=== PATIENT | male | born 1970 | race Two or more races ===

== ENCOUNTER 2021-05-08 07:19 | Emergency (ER) | payer OTHER ==
[~2021-05-08] VITALS: Ht 180.3 cm; Wt 91.6 kg
[2021-05-08 08:07] VITALS: BP 137/79
== END 2021-05-08 09:10 | disposition home or self-care (01) ==
LOC: ER 07:19
DX: I10 Essential (primary) hypertension (principal); F41.9 Anxiety disorder, unspecified; Z88.8 Allergy status to other drugs, medicaments and biological substances
CPT/HCPCS: 93005

== ENCOUNTER 2022-04-24 16:58 | Emergency (ER) | payer OTHER ==
[~2022-04-24] VITALS: Ht 180.3 cm; Wt 92.0 kg
[2022-04-24 17:12] VITALS: BP 182/95
[2022-04-24 18:25] LABS: BUN/Creatinine Ratio 15.7; Calcium 8.7 mg/dL (8.5-10.1); Potassium 5.1 mmol/L (3.5-5.1)
[2022-04-24 18:27] LABS: Basophils # (auto) 0.1 10 ^3/uL (0-0.2); Basophils % (auto) 0.6 % (0.0-2.0); Eosinophils # (auto) 0.4 10 ^3/uL (0-0.8); Eosinophils % (auto) 3.8 % (0.0-7.0); Hematocrit 48.4 % (41.0-53.0); Lymphocytes # (auto) 2.5 10 ^3/uL (0.4-5.4); Lymphocytes % (auto) 23.7 % (10.0-50.0); Mean Corpuscular Hemoglobin 29.1 pg (28.0-32.0); Mean Corpuscular Hgb Conc. 33.1 g/dL (32.0-36.0); Monocytes # (auto) 0.8 10 ^3/uL (0-1.3); Monocytes % (auto) 7.8 % (0.0-12.0); Neutrophils # (auto) 6.8 10 ^3/uL (1.6-8.6); Neutrophils % (auto) 64.1 % (37.0-80.0); Nucleated Red Blood Cells % 0.1 %; Red Cell Distribution Width 15.4 % (11.8-14.3); White Blood Cell 10.6 10^3/uL (4.4-10.8)
[2022-04-24 18:28] LABS: Bilirubin, Total 0.2 mg/dL (0.2-1.0)
== END 2022-04-25 00:06 | disposition home or self-care (01) ==
LOC: ER 17:07
DX: R07.89 Other chest pain (principal); I10 Essential (primary) hypertension; Z88.8 Allergy status to other drugs, medicaments and biological substances
CPT/HCPCS: 36415; 71045; 80053; 83880; 84484; 85025; 85379; 93005

== ENCOUNTER 2022-05-11 02:53 | Emergency (ER) | payer OTHER ==
[~2022-05-11] VITALS: Ht 177.8 cm; Wt 88.0 kg
[2022-05-11 03:52] LABS: Basophils # (auto) 0 10 ^3/uL (0-0.2); Basophils % (auto) 0.8 % (0.0-2.0); Eosinophils # (auto) 0.4 10 ^3/uL (0-0.8); Eosinophils % (auto) 9.1 % (0.0-7.0); Hematocrit 46.6 % (41.0-53.0); Hemoglobin 15.1 g/dL (13.5-17.5); Lymphocytes # (auto) 1.5 10 ^3/uL (0.4-5.4); Mean Corpuscular Hemoglobin 28.8 pg (28.0-32.0); Mean Corpuscular Hgb Conc. 32.5 g/dL (32.0-36.0); Mean Corpuscular Volume 88.6 fL (80.0-100.0); Monocytes # (auto) 0.4 10 ^3/uL (0-1.3); Monocytes % (auto) 8.1 % (0.0-12.0); Neutrophils # (auto) 2.6 10 ^3/uL (1.6-8.6); Red Blood Cells 5.26 10^6/uL (4.5-5.90); Red Cell Distribution Width 15.5 % (11.8-14.3); White Blood Cell 4.9 10^3/uL (4.4-10.8)
[2022-05-11 04:01] LABS: Albumin 3.4 g/dL (3.4-5.0); BUN/Creatinine Ratio 23.2; Calcium 8.2 mg/dL (8.5-10.1); Potassium 4.2 mmol/L (3.5-5.1)
[2022-05-11 04:03] LABS: Bilirubin, Total 0.2 mg/dL (0.2-1.0); Total Protein 6.3 g/dL (6.4-8.2)
[2022-05-11] MEDS ORDERED: ASPirin 325 MG TAB PO ONE (08:15)
[2022-05-11 08:20] VITALS: BP 150/85
== END 2022-05-11 09:17 | disposition home or self-care (01) ==
LOC: ER 02:53
DX: R07.89 Other chest pain (principal); I16.0 Hypertensive urgency; F17.210 Nicotine dependence, cigarettes, uncomplicated; F12.10 Cannabis abuse, uncomplicated
CPT/HCPCS: 36415; 71045; 80053; 84484; 85025; 93005

== ENCOUNTER 2022-06-12 00:51 | Emergency (ER) | payer OTHER ==
[~2022-06-12] VITALS: Ht 177.8 cm; Wt 90.0 kg
[2022-06-12 01:18] LABS: Basophils # (auto) 0.1 10 ^3/uL (0-0.2); Basophils % (auto) 1.3 % (0.0-2.0); Eosinophils # (auto) 0.5 10 ^3/uL (0-0.8); Eosinophils % (auto) 4.8 % (0.0-7.0); Hematocrit 41.1 % (41.0-53.0); Hemoglobin 13.9 g/dL (13.5-17.5); Lymphocytes # (auto) 2.8 10 ^3/uL (0.4-5.4); Lymphocytes % (auto) 27.5 % (10.0-50.0); Mean Corpuscular Hemoglobin 29.2 pg (28.0-32.0); Mean Corpuscular Hgb Conc. 33.8 g/dL (32.0-36.0); Mean Corpuscular Volume 86.5 fL (80.0-100.0); Monocytes # (auto) 0.5 10 ^3/uL (0-1.3); Monocytes % (auto) 5.4 % (0.0-12.0); Neutrophils # (auto) 6.2 10 ^3/uL (1.6-8.6); Nucleated Red Blood Cells % 0.4 %; Red Blood Cells 4.75 10^6/uL (4.5-5.90); White Blood Cell 10.2 10^3/uL (4.4-10.8)
[2022-06-12 01:27] LABS: Albumin 3.6 g/dL (3.4-5.0); BUN/Creatinine Ratio 24.1; Calcium 8.2 mg/dL (8.5-10.1); Potassium 3.6 mmol/L (3.5-5.1)
[2022-06-12 01:30] LABS: Bilirubin, Total 0.3 mg/dL (0.2-1.0); Total Protein 6.4 g/dL (6.4-8.2)
[2022-06-12 01:51] LABS: Urine Bacteria FEW /hpf (None Seen); Urine Blood Negative /uL (Negative); Urine Mucus FEW (None Seen); Urine WBC <1 /hpf (0 - 3)
[2022-06-12 04:00] VITALS: BP 128/74
== END 2022-06-12 04:33 | disposition home or self-care (01) ==
LOC: ER 00:51
DX: R07.89 Other chest pain (principal); F17.210 Nicotine dependence, cigarettes, uncomplicated; F12.10 Cannabis abuse, uncomplicated; I10 Essential (primary) hypertension; Z88.6 Allergy status to analgesic agent
CPT/HCPCS: 36415; 71045; 80053; 81001; 84484; 85025; 85379; 93005

== ENCOUNTER → 2022-07-03 | Emergency (ER) | payer MEDICAID, OTHER ==
[~2022-07-03] VITALS: Ht 177.8 cm; Wt 88.4 kg
[2022-07-03 16:36] VITALS: BP 166/85
[2022-07-03 16:57] LABS: Basophils % (auto) 0.7 % (0.0-2.0); Eosinophils # (auto) 0.6 10 ^3/uL (0-0.8); Hematocrit 39.7 % (41.0-53.0); Hemoglobin 13.5 g/dL (13.5-17.5)
[2022-07-03 16:58] LABS: Basophils # (auto) 0.1 10 ^3/uL (0-0.2); Eosinophils % (auto) 8.4 % (0.0-7.0); Lymphocytes # (auto) 2.6 10 ^3/uL (0.4-5.4); Lymphocytes % (auto) 37.1 % (10.0-50.0); Mean Corpuscular Hemoglobin 28.7 pg (28.0-32.0); Mean Corpuscular Hgb Conc. 33.9 g/dL (32.0-36.0); Mean Corpuscular Volume 84.7 fL (80.0-100.0); Monocytes # (auto) 0.7 10 ^3/uL (0-1.3); Monocytes % (auto) 9.7 % (0.0-12.0); Neutrophils # (auto) 3.1 10 ^3/uL (1.6-8.6); Neutrophils % (auto) 44.1 % (37.0-80.0); Nucleated Red Blood Cells % 0.2 %; Red Blood Cells 4.69 10^6/uL (4.5-5.90); Red Cell Distribution Width 14.5 % (11.8-14.3); White Blood Cell 7.1 10^3/uL (4.4-10.8)
[2022-07-03 17:10] LABS: INR 0.96 (0.9-1.15); Partial Thromboplastin Time 25.5 sec (24.6-33.4)
[2022-07-03 17:14] LABS: Albumin 3.6 g/dL (3.4-5.0); Calcium 8.9 mg/dL (8.5-10.1); Magnesium 2.3 mg/dL (1.6-2.6); Potassium 4.3 mmol/L (3.5-5.1)
[2022-07-03 17:17] LABS: BUN/Creatinine Ratio 15.2; Bilirubin, Total 0.4 mg/dL (0.2-1.0); Total Protein 6.3 g/dL (6.4-8.2)
[2022-07-03 17:17] LABS: Urine Bacteria NONE SEEN /hpf (None Seen); Urine Blood Negative /uL (Negative); Urine Specific Gravity 1.011 (1.001-1.035); Urine WBC <1 /hpf (0 - 3)
[2022-07-03 17:35] LABS: Amphetamine Screen, Urine NEGATIVE (NEGATIVE); Barbiturate Scree,Urine NEGATIVE (NEGATIVE); Benzodiazephine Screen, Urine NEGATIVE (NEGATIVE); Cannabinoid Screen, Urine NEGATIVE (NEGATIVE); Cocaine Screen, Urine NEGATIVE (NEGATIVE); Opiate Scree,Urine POSITIVE (NEGATIVE); Phencyclidine Screen, Urine NEGATIVE (NEGATIVE)
== END | disposition left against medical advice (07) ==
LOC: ER 16:23
DX: R07.89 Other chest pain (principal); Z53.21 Procedure and treatment not carried out due to patient leaving prior to being seen by health care provider
CPT/HCPCS: 36415; 71045; 80053; 80307; 81001; 83735; 83880; 84443; 84484; 85025; 85610; 85730; 93005

== ENCOUNTER 2022-09-05 23:19 | Emergency (ER) | payer MEDICAID, OTHER ==
[~2022-09-05] VITALS: Ht 177.8 cm; Wt 91.0 kg
[2022-09-05 23:35] VITALS: BP 146/87
[2022-09-06 00:05] LABS: Basophils # (auto) 0 10 ^3/uL (0-0.2); Basophils % (auto) 0.5 % (0.0-2.0); Eosinophils # (auto) 0.5 10 ^3/uL (0-0.8); Eosinophils % (auto) 5.9 % (0.0-7.0); Hematocrit 40.3 % (41.0-53.0); Hemoglobin 13.4 g/dL (13.5-17.5); Lymphocytes # (auto) 2.9 10 ^3/uL (0.4-5.4); Lymphocytes % (auto) 32.8 % (10.0-50.0); Mean Corpuscular Hemoglobin 31.6 pg (28.0-32.0); Mean Corpuscular Hgb Conc. 33.1 g/dL (32.0-36.0); Mean Corpuscular Volume 95.4 fL (80.0-100.0); Monocytes # (auto) 0.4 10 ^3/uL (0-1.3); Neutrophils # (auto) 4.9 10 ^3/uL (1.6-8.6); Neutrophils % (auto) 55.8 % (37.0-80.0); Nucleated Red Blood Cells % 0.1 %; Red Blood Cells 4.23 10^6/uL (4.5-5.90); White Blood Cell 8.8 10^3/uL (4.4-10.8)
[2022-09-06 00:22] LABS: BUN/Creatinine Ratio 21.5; Calcium 9.1 mg/dL (8.5-10.1); Potassium 4.3 mmol/L (3.5-5.1)
[2022-09-06 00:25] LABS: Bilirubin, Total 0.4 mg/dL (0.2-1.0); Total Protein 6.8 g/dL (6.4-8.2)
== END 2022-09-06 01:00 | disposition left against medical advice (07) ==
LOC: ER 23:21
DX: R00.2 Palpitations (principal); I10 Essential (primary) hypertension; Z53.21 Procedure and treatment not carried out due to patient leaving prior to being seen by health care provider
CPT/HCPCS: 36415; 71046; 80053; 84484; 85025; 93005

== ENCOUNTER 2022-11-15 22:30 | Emergency (ER) | payer OTHER ==
[~2022-11-15] VITALS: Ht 177.8 cm; Wt 90.0 kg
[2022-11-15 22:58] LABS: Basophils # (auto) 0.1 10 ^3/uL (0-0.2); Basophils % (auto) 0.6 % (0.0-2.0); Eosinophils # (auto) 0.4 10 ^3/uL (0-0.8); Eosinophils % (auto) 3.2 % (0.0-7.0); Hemoglobin 14.3 g/dL (13.5-17.5); Lymphocytes # (auto) 2.9 10 ^3/uL (0.4-5.4); Lymphocytes % (auto) 24.4 % (10.0-50.0); Mean Corpuscular Hemoglobin 31.1 pg (28.0-32.0); Mean Corpuscular Hgb Conc. 33.3 g/dL (32.0-36.0); Mean Corpuscular Volume 93.6 fL (80.0-100.0); Monocytes # (auto) 0.6 10 ^3/uL (0-1.3); Neutrophils % (auto) 66.8 % (37.0-80.0); Nucleated Red Blood Cells % 0.1 %; Red Blood Cells 4.59 10^6/uL (4.5-5.90); Red Cell Distribution Width 13.7 % (11.8-14.3); White Blood Cell 11.9 10^3/uL (4.4-10.8)
[2022-11-15 23:13] LABS: INR 0.98 (0.9-1.15); Partial Thromboplastin Time 27.1 sec (24.6-33.4)
[2022-11-15 23:16] LABS: Albumin 3.7 g/dL (3.4-5.0); Calcium 8.4 mg/dL (8.5-10.1); Magnesium 2.1 mg/dL (1.6-2.6); Potassium 4.2 mmol/L (3.5-5.1)
[2022-11-15 23:24] LABS: BUN/Creatinine Ratio 16.1; Bilirubin, Total 0.4 mg/dL (0.2-1.0); Total Protein 6.7 g/dL (6.4-8.2)
[2022-11-16 05:59] VITALS: BP 147/80
== END 2022-11-16 06:00 | disposition home or self-care (01) ==
LOC: ER 22:32
DX: R07.89 Other chest pain (principal); F41.9 Anxiety disorder, unspecified; E78.9 Disorder of lipoprotein metabolism, unspecified; I10 Essential (primary) hypertension; F17.210 Nicotine dependence, cigarettes, uncomplicated; F12.90 Cannabis use, unspecified, uncomplicated; Z88.8 Allergy status to other drugs, medicaments and biological substances
CPT/HCPCS: 36415; 71046; 80053; 83735; 83880; 84484; 85025; 85610; 85730; 93005

== ENCOUNTER 2023-01-22 01:39 | Emergency (ER) | payer OTHER ==
[~2023-01-22] VITALS: Ht 177.8 cm; Wt 93.1 kg
[2023-01-22 01:42] VITALS: BP 151/77
[2023-01-22 01:57] LABS: Basophils # (auto) 0.1 10 ^3/uL (0-0.2); Basophils % (auto) 1.3 % (0.0-2.0); Eosinophils # (auto) 0.4 10 ^3/uL (0-0.8); Eosinophils % (auto) 5.7 % (0.0-7.0); Hematocrit 39.2 % (41.0-53.0); Hemoglobin 13.3 g/dL (13.5-17.5); Lymphocytes # (auto) 2.8 10 ^3/uL (0.4-5.4); Lymphocytes % (auto) 38.6 % (10.0-50.0); Mean Corpuscular Hemoglobin 31.6 pg (28.0-32.0); Mean Corpuscular Hgb Conc. 33.8 g/dL (32.0-36.0); Mean Corpuscular Volume 93.4 fL (80.0-100.0); Monocytes # (auto) 0.4 10 ^3/uL (0-1.3); Monocytes % (auto) 5.5 % (0.0-12.0); Neutrophils # (auto) 3.6 10 ^3/uL (1.6-8.6); Neutrophils % (auto) 48.9 % (37.0-80.0); Red Blood Cells 4.19 10^6/uL (4.5-5.90); Red Cell Distribution Width 14.2 % (11.8-14.3); White Blood Cell 7.3 10^3/uL (4.4-10.8)
[2023-01-22 02:12] LABS: INR 0.94 (0.9-1.15); Partial Thromboplastin Time 28.2 sec (24.6-33.4)
[2023-01-22 02:18] LABS: Albumin 3.6 g/dL (3.4-5.0); Calcium 8.5 mg/dL (8.5-10.1); Magnesium 2.2 mg/dL (1.6-2.6); Potassium 3.7 mmol/L (3.5-5.1)
[2023-01-22 02:20] LABS: Bilirubin, Total 0.2 mg/dL (0.2-1.0); Total Protein 6.6 g/dL (6.4-8.2)
== END 2023-01-22 05:57 | disposition left against medical advice (07) ==
LOC: ER 01:39
DX: R07.2 Precordial pain (principal); Z53.21 Procedure and treatment not carried out due to patient leaving prior to being seen by health care provider
CPT/HCPCS: 36415; 71045; 80053; 83735; 83880; 84484; 85025; 85610; 85730; 93005

== ENCOUNTER 2023-04-17 11:35 | Emergency (ER) | payer OTHER ==
[~2023-04-17] VITALS: Ht 177.8 cm; Wt 98.5 kg
[2023-04-17 11:53] LABS: Basophils # (auto) 0.1 10 ^3/uL (0-0.2); Basophils % (auto) 0.9 % (0.0-2.0); Eosinophils # (auto) 0.3 10 ^3/uL (0-0.8); Eosinophils % (auto) 3.5 % (0.0-7.0); Hematocrit 37.9 % (41.0-53.0); Hemoglobin 12.6 g/dL (13.5-17.5); Lymphocytes % (auto) 24.6 % (10.0-50.0); Mean Corpuscular Hemoglobin 30.3 pg (28.0-32.0); Mean Corpuscular Hgb Conc. 33.1 g/dL (32.0-36.0); Mean Corpuscular Volume 91.4 fL (80.0-100.0); Monocytes # (auto) 0.4 10 ^3/uL (0-1.3); Monocytes % (auto) 5.3 % (0.0-12.0); Neutrophils # (auto) 5.2 10 ^3/uL (1.6-8.6); Neutrophils % (auto) 65.7 % (37.0-80.0); Red Blood Cells 4.15 10^6/uL (4.5-5.90)
[2023-04-17 12:12] LABS: Albumin 3.5 g/dL (3.4-5.0); Calcium 8.7 mg/dL (8.5-10.1); Potassium 4.4 mmol/L (3.5-5.1)
[2023-04-17 12:15] LABS: BUN/Creatinine Ratio 20.2 (10.0-20.0); Bilirubin, Total 0.3 mg/dL (0.2-1.0); Total Protein 6.3 g/dL (6.4-8.2)
[2023-04-17 13:10] VITALS: BP 114/72; PULSE 77; RESP 18; O2SAT 98
== END 2023-04-17 13:09 | disposition home or self-care (01) ==
LOC: ER 11:35
DX: R07.89 Other chest pain (principal); I10 Essential (primary) hypertension; J44.9 Chronic obstructive pulmonary disease, unspecified; R42 Dizziness and giddiness; E78.5 Hyperlipidemia, unspecified; F12.10 Cannabis abuse, uncomplicated; Z87.891 Personal history of nicotine dependence
CPT/HCPCS: 36415; 71045; 80053; 84484; 85025; 93005

== ENCOUNTER 2023-05-07 21:01 | Emergency (ER) | payer OTHER ==
[~2023-05-07] VITALS: Ht 180.3 cm; Wt 93.1 kg
[2023-05-07 21:05] VITALS: BP 173/79; RESP 18; O2SAT 97
[2023-05-07 21:09] VITALS: PULSE 66
[2023-05-07 21:21] LABS: Eosinophils # (auto) 0.4 10 ^3/uL (0-0.8); Mean Corpuscular Hemoglobin 30.7 pg (28.0-32.0); Mean Corpuscular Hgb Conc. 33.5 g/dL (32.0-36.0); Red Cell Distribution Width 14.6 % (11.8-14.3)
[2023-05-07 21:24] LABS: Basophils # (auto) 0.1 10 ^3/uL (0-0.2); Basophils % (auto) 1.1 % (0.0-2.0); Eosinophils % (auto) 4.6 % (0.0-7.0); Hematocrit 37.4 % (41.0-53.0); Hemoglobin 12.5 g/dL (13.5-17.5); Lymphocytes # (auto) 2.7 10 ^3/uL (0.4-5.4); Lymphocytes % (auto) 31.5 % (10.0-50.0); Mean Corpuscular Volume 91.6 fL (80.0-100.0); Monocytes # (auto) 0.5 10 ^3/uL (0-1.3); Monocytes % (auto) 6.5 % (0.0-12.0); Neutrophils # (auto) 4.8 10 ^3/uL (1.6-8.6); Neutrophils % (auto) 56.3 % (37.0-80.0); Nucleated Red Blood Cells % 0.1 %; Red Blood Cells 4.08 10^6/uL (4.5-5.90); White Blood Cell 8.4 10^3/uL (4.4-10.8)
[2023-05-07 21:44] LABS: INR 0.97 (0.9-1.15); Partial Thromboplastin Time 26.9 SEC (24.5-34.5); Prothrombin Time 10.2 sec (9.3-11.8)
[2023-05-07 21:45] LABS: Albumin 3.3 g/dL (3.4-5.0); Calcium 8.4 mg/dL (8.5-10.1); Magnesium 2.2 mg/dL (1.6-2.6)
[2023-05-07 21:47] LABS: BUN/Creatinine Ratio 17.7 (10.0-20.0); Bilirubin, Total 0.2 mg/dL (0.2-1.0); Total Protein 6.1 g/dL (6.4-8.2)
== END 2023-05-07 21:56 | disposition left against medical advice (07) ==
LOC: ER 21:01
DX: R07.89 Other chest pain (principal); Z53.21 Procedure and treatment not carried out due to patient leaving prior to being seen by health care provider
CPT/HCPCS: 36415; 80053; 83735; 83880; 84484; 85025; 85610; 85730; 93005

== ENCOUNTER → 2023-05-25 | Outpatient (CLI) | payer OTHER | END | disposition home or self-care (01) | LOC: XYW 07:35 | PROVIDERS: ATTEND Specialist | DX: I10 Essential (primary) hypertension (principal); E78.5 Hyperlipidemia, unspecified; R07.9 Chest pain, unspecified | CPT/HCPCS: 78452; 93017; A9500 ==

== ENCOUNTER 2023-06-26 18:01 | Inpatient (IN) | payer MEDICAID, OTHER ==
[~2023-06-26] VITALS: Ht 180.3 cm; Wt 96.7 kg
[2023-06-26 18:51] LABS: Basophils # (auto) 0 10 ^3/uL (0-0.2); Basophils % (auto) 0.5 % (0.0-2.0); Eosinophils # (auto) 0.3 10 ^3/uL (0-0.8); Eosinophils % (auto) 3.8 % (0.0-7.0); Hematocrit 39.6 % (41.0-53.0); Hemoglobin 13.5 g/dL (13.5-17.5); Lymphocytes # (auto) 2.6 10 ^3/uL (0.4-5.4); Mean Corpuscular Hemoglobin 30.7 pg (28.0-32.0); Mean Corpuscular Volume 90.3 fL (80.0-100.0); Monocytes # (auto) 0.6 10 ^3/uL (0-1.3); Monocytes % (auto) 6.7 % (0.0-12.0); Neutrophils # (auto) 5.1 10 ^3/uL (1.6-8.6); Nucleated Red Blood Cells % 0.1 %; Red Blood Cells 4.38 10^6/uL (4.5-5.90); Red Cell Distribution Width 14.5 % (11.8-14.3); White Blood Cell 8.7 10^3/uL (4.4-10.8)
[2023-06-26 18:53] LABS: Alanine Aminotransferase 27 U/L (7-40); Albumin 4.4 g/dL (3.2-4.8); Alkaline Phosphatase 118 U/L (46-116); Anion Gap 8 (5-15); Aspartate Aminotransferase 18 U/L (13-40); BUN/Creatinine Ratio 16.2 (10.0-20.0); Bilirubin, Total 0.2 mg/dL (0.2-1.0); Blood Urea Nitrogen 19 mg/dL (9-23); Calcium 9.3 mg/dL (8.7-10.4); Carbon Dioxide 24 mmol/L (20-30); Chloride 106 mmol/L (98-107); Glucose 101 mg/dL (74-106); Potassium 3.9 mmol/L (3.5-5.1); Sodium 138 mmol/L (136-145); Total Protein 6.5 g/dL (5.7-8.2)
[2023-06-26 19:04] LABS: Urine Bacteria NONE SEEN /hpf (None Seen); Urine Blood Negative /uL (Negative); Urine Clarity Clear (Clear); Urine Color Colorless (Yellow); Urine Hyaline Cast FEW /lpf (0 - 2); Urine Mucus FEW (None Seen); Urine Protein, UAD Negative (Negative); Urine Specific Gravity 1.015 (1.001-1.035); Urine Urobilinogen Normal (Negative); Urine WBC 2 /hpf (0 - 3)
[2023-06-26] MEDS ORDERED: NITROGLYCERIN 2% OINT 1GM PKG TD ONE (21:30)
[2023-06-26] MEDS ORDERED: ASPirin-EC 325mg tab PO ONE (21:30)
[2023-06-26] MEDS ORDERED: NITROGLYCERIN 0.4 MG SL TAB SL PRN (22:30)
[2023-06-26] MEDS ORDERED: TEMAZEPAM 15 MG CAP PO PRN (22:30)
[2023-06-26] MEDS ORDERED: MORPHINE SULFATE INJ 2 MG/ml SYRG IV PRN ×2 (22:30)
[2023-06-26] MEDS ORDERED: DOCUSATE SOD 100 MG CAP PO PRN (22:30)
[2023-06-26] MEDS ORDERED: ONDANSETRON HCL 4 MG/2 ML VIAL IV PRN (22:30)
[2023-06-26] MEDS ORDERED: HYDROcodone-ACET 5/325MG TAB PO PRN (22:30)
[2023-06-26] MEDS ORDERED: ACETAMINOPHEN 325 MG TAB PO PRN (22:30)
[2023-06-26 23:59] VITALS: PULSE 71; RESP 13; O2SAT 95
[2023-06-27 05:18] LABS: Basophils # (auto) 0 10 ^3/uL (0-0.2); Basophils % (auto) 0.7 % (0.0-2.0); Eosinophils # (auto) 0.3 10 ^3/uL (0-0.8); Eosinophils % (auto) 5.6 % (0.0-7.0); Hematocrit 38.5 % (41.0-53.0); Hemoglobin 12.9 g/dL (13.5-17.5); Lymphocytes # (auto) 2.5 10 ^3/uL (0.4-5.4); Mean Corpuscular Hemoglobin 30.6 pg (28.0-32.0); Mean Corpuscular Hgb Conc. 33.6 g/dL (32.0-36.0); Monocytes # (auto) 0.4 10 ^3/uL (0-1.3); Monocytes % (auto) 6.8 % (0.0-12.0); Neutrophils # (auto) 2.7 10 ^3/uL (1.6-8.6); Neutrophils % (auto) 44.9 % (37.0-80.0); Nucleated Red Blood Cells % 0.1 %; Red Blood Cells 4.23 10^6/uL (4.5-5.90); Red Cell Distribution Width 14.3 % (11.8-14.3)
[2023-06-27 05:34] LABS: Alanine Aminotransferase 21 U/L (7-40); Alkaline Phosphatase 98 U/L (46-116); Anion Gap 6 (5-15); Aspartate Aminotransferase 14 U/L (13-40); BUN/Creatinine Ratio 13.9 (10.0-20.0); Bilirubin, Total 0.5 mg/dL (0.2-1.0); Blood Urea Nitrogen 15 mg/dL (9-23); Calcium 8.9 mg/dL (8.5-10.1); Carbon Dioxide 27 mmol/L (20-30); Chloride 109 mmol/L (98-107); Glucose 120 mg/dL (74-106); Sodium 142 mmol/L (136-145)
[2023-06-27] MEDS ORDERED: ATOR10TA52 PO (11:35)
[2023-06-27] MEDS ORDERED: ISOS1TAB28 PO (11:35)
[2023-06-27] MEDS ORDERED: MET25T PO (11:35)
[2023-06-27] MEDS ORDERED: LOSA50TA46 PO ×2 (11:35→17:02)
[2023-06-27] MEDS ORDERED: TAMS0.4C36 PO (11:35)
[2023-06-27] MEDS: PANTOPRAZOLE 40 MG/10 ML VIAL INJ IV SCH (11:45)
[2023-06-27] MEDS ORDERED: NITROGLYCERIN 0.4 MG SL TAB SL PRN (11:45)
[2023-06-27] MEDS: ENOXAPARIN SOD 40 MG/0.4 ML SYRINGE SC SCH (11:45)
[2023-06-27 16:55] VITALS: BP 140/75; PULSE 77; RESP 16; TEMP 98.2; O2SAT 96
[2023-06-27 17:00] VITALS: BP 144/83; PULSE 66; RESP 19; TEMP 98.6; O2SAT 96
[2023-06-27] MEDS ORDERED: RANO10003 PO (17:02)
[2023-06-27] MEDS ORDERED: OXYM-15 (17:02)
[2023-06-27] MEDS ORDERED: BUPR-346 PO (17:02)
[2023-06-27] MEDS ORDERED: FAMO-12 PO (17:02)
[2023-06-27] MEDS ORDERED: ATOR20TA50 PO (17:02)
[2023-06-27] MEDS ORDERED: HYDR-4798 PO (17:02)
[2023-06-27] MEDS ORDERED: ASPI-543 PO (17:02)
[2023-06-27] MEDS ORDERED: TIOT1AER2 IN (17:04)
[2023-06-27 19:30] VITALS: PULSE 90; PULSE 91; RESP 17; O2SAT 98
[2023-06-27] MEDS: METOPROLOL TARTRATE 25 MG TAB PO SCH (21:03)
[2023-06-27] MEDS: ISOSORBIDE MONONITRATE ER 60 MG TAB PO SCH (21:03)
[2023-06-27 22:00] VITALS: BP 156/72; PULSE 70; RESP 20; TEMP 98.6; O2SAT 95
[2023-06-27] MEDS ORDERED: PATIENTS OWN MEDICATION (Isosorbide Mononitrate (Isosorbide Mononitrate Er) 1 TAB) PO SCH (22:00)
[2023-06-27] MEDS ORDERED: ATORVASTATIN 20 MG TAB PO SCH (22:00)
[2023-06-28 05:00] VITALS: BP 140/80; PULSE 57; RESP 20; TEMP 97.7; O2SAT 98
[2023-06-28 07:30] VITALS: O2SAT 98
[2023-06-28 08:00] VITALS: PULSE 51
[2023-06-28] MEDS: METOPROLOL TARTRATE 25 MG TAB PO SCH (08:56)
[2023-06-28] MEDS: ENOXAPARIN SOD 40 MG/0.4 ML SYRINGE SC SCH ×2 (08:57→09:07)
[2023-06-28] MEDS: ISOSORBIDE MONONITRATE ER 60 MG TAB PO SCH (08:57)
[2023-06-28] MEDS: PANTOPRAZOLE 40 MG/10 ML VIAL INJ IV SCH (08:57)
[2023-06-28 09:00] VITALS: BP 132/81; PULSE 62; RESP 20; TEMP 97.9; O2SAT 96
[2023-06-28] MEDS ORDERED: TAMSULOSIN HYDROCHLORIDE 0.4 MG CAP PO SCH (10:00)
[2023-06-28] MEDS ORDERED: LOSARTAN POTASSIUM 50 MG TAB PO SCH (10:00)
[2023-06-28] MEDS ORDERED: PATIENTS OWN MEDICATION (Atorvastatin Calcium 1 TAB) PO SCH (10:00)
[2023-06-28 11:52] VITALS: BP 137/72; PULSE 63; TEMP 36.6
== END 2023-06-28 12:20 | disposition home or self-care (01) | DRG 243 ==
LOC: ER 18:01 → TELE 22:23 → TELE-WESTW 06-27 15:54
PROVIDERS: ADMIT Internal Medicine; ATTEND Internal Medicine
DX: K21.9 Gastro-esophageal reflux disease without esophagitis (principal); E78.5 Hyperlipidemia, unspecified; I25.10 Atherosclerotic heart disease of native coronary artery without angina pectoris; F17.210 Nicotine dependence, cigarettes, uncomplicated; F41.9 Anxiety disorder, unspecified; J44.9 Chronic obstructive pulmonary disease, unspecified; I10 Essential (primary) hypertension; I25.2 Old myocardial infarction; Z88.8 Allergy status to other drugs, medicaments and biological substances
CPT/HCPCS: 36415; 71045; 80053; 81001; 83690; 84484; 85025; 93005; 96374; 96375; C9113; G0378; J2405

== ENCOUNTER 2025-03-27 20:20 | Inpatient (IN) | payer OTHER ==
[~2025-03-27] VITALS: Ht 177.8 cm; Wt 95.4 kg
[~2025-03-27 20:20] MED LIST: ACET-6 PO; ASPI-543 PO; ATOR20TA50 PO; BUPR-346 PO; FAMO-12 PO; HYDR-4798 PO; ISOS1TAB28 PO; LOSA-534 PO; MET25T PO; OXYM-15; RANO10003 PO; TAMS0.4C39 PO; TIOT1AER2 IN
--- NOTE | 2025-03-27 20:42 | ED.PDOC ---
HPI Comments 54 year old male came to ER due to chest pains. Patient has history of hypertension, CAD, GERD, COPD and mitral valve prolapse. Patient seen here multiple times for chest pains. Patient states he has been having constant m idsternal chest pains, sharp, radiating down his left shoulder. Denies any nausea, vomiting or shortness of breath. Patient states he had neck nerve injection a week ago. Chief Complaint: Chest Pain Time Seen by MD: 20:41 Primary Care Provider: FRANSISCO Reviewed Notes: Nurses Notes Allergies: Coded Allergies: Metoclopramide (Verified Allergy, Mild, 05/08/21) Home Meds Active Scripts Acetaminophen (Acetaminophen Extra Stren) 500 Mg Tab, 500 MG PO QIDPRN for 10 Days, #40 TAB Prov:DUSTIN VIVEROS DO 11/20/23 Reported Medications Tiotropium [place] Monohydrate (Spiriva Respimat) 1.25 Mcg/Act Aer, 1.25 MCG IN, AER 06/27/23 Ranolazine (Ranolazine ER) 1,000 Mg Tab, 1000 MG PO, TAB 06/27/23 Atorvastatin Calcium (ATORVASTATIN CALCIUM) 20 Mg Tab, 1 TAB PO DAILY, #30 TAB 5 Refills 06/27/23 Oxymetazoline Hcl (AFRIN 12 HOUR) 0.05 % Spr, 2 SPRAY NA BID, #15 ML 06/27/23 Aspirin (Aspir-Low) 81 Mg Tab, 81 MG PO DAILY for 30 Days, MG 06/27/23 Hydrocodone-Acetaminophen (Hydrocodone Bitartrate/AC 10-325 mg) 1 Tab Tab, 1 TAB PO, TAB 06/27/23 Bupropion Hcl (Bupropion Hcl) 100 Mg Tab, 150 MG PO, TAB 06/27/23 Famotidine (Famotidine) 20 Mg Tab, 20 MG PO BID for 30 Days, MG 06/27/23 Tamsulosin Hcl (Tamsulosin Hcl) 0.4 Mg Cap, 1 CAP PO DAILY 06/27/23 Losartan Potassium (Losartan Potassium) 50 Mg Tab, 1 TAB PO DAILY 06/27/23 Metoprolol Tartrate (Lopressor) 25 Mg Tb, 1 TAB PO BID 06/27/23 Isosorbide Mononitrate (Isosorbide Mononitrate Er) 30 Mg Tab, 1 TAB PO BID 06/27/23 Information Source: Patient Mode of Arrival: Ambulatory Severity: Moderate Timing: Hours Duration: Since onset Prehospital treatment: None Location: Substernal Radiation: Shoulder (L) Quality: Sharp Onset: With Light Exertion Cardiac Risk Factors: HTN PE Risk Factors: None History of: Similar pain in past Modifying Factors: Nothing Associated Signs and Symptoms: None Past Medical History PAST MEDICAL HISTORY: Anxiety, CAD, COPD, GERD, High Lipids, HTN Past Medical History (Other): Mitral valve prolapse Surgical History (Other): Left knee surgery Family History Family History: Reviewed,noncontributory to illness, Family hx of heart jemal, Family hx of stroke Social History Smoker: Non-Smoker, Quit Greater Than 1 Year, Other Alcohol: Occasionally Drugs: Marijuana Lives In: Home Constitutional: denies: chills, diaphoresis, fatigue, fever, malaise, sweats, weakness, others EENTM: denies: blurred vision, double vision, ear bleeding, ear discharge, ear drainage, ear pain, ear ringing, eye pain, eye redness, hearing loss, mouth pain, mouth swelling, nasal discharge, nose bleeding, nose congestion, nose pain, photophobia, tearing, throat pain, throat swelling, voice changes, others Respiratory: denies: cough, hemoptysis, orthopnea, SOB at rest, shortness of breath, SOB with excertion, stridor, wheezing, others Cardiovascular: reports: chest pain; denies: dizzy spells, diaphoresis, Dyspnea on exertion, edema, irregular heart beat, left arm pain, lightheadedness, palpitations, PND, syncope, others Gastrointestinal: denies: abdomen distended, abdominal pain, blood streaked bowels, constipated, diarrhea, dysphagia, difficulty swallowing, hematemesis, melena, nausea, poor appetite, poor fluid intake, rectal bleeding, rectal pain, vomiting, others Genitourinary: denies: burning, dysuria, flank pain, frequency, hematuria, incontinence, penile discharge, penile sore, pain, testicle pain, testicle swelling, urgency, others Neurological: denies: dizziness, fainting, headache, left sided numbness, left sided weakness, numbness, paresthesia, pre-existing deficit, right sided numbness, right sided weakness, seizure, speech problems, tingling, tremors, weakness, others Musculoskeletal: denies: back pain, gout, joint pain, joint swelling, muscle pain, muscle stiffness, neck pain, others Integumetry: denies: bruises, change in color, change in hair/nails, dryness, laceration, lesions, lumps, rash, wounds, others Allergic/Immunocompromised: denies: Difficulty Healing, Frequent Infections, Hives, Itching, others Hematologic/Lymphatic: denies: anemia, blood clots, easy bleeding, easy bruising, swollen glands, others Endocrine: denies: excessive hunger, excessive sweating, excessive thirst, excessive urination, flushing, intolerance to cold, intolerance to heat, unexplained weight gain, unexplained weight loss, others Psychiatric: denies: anxiety, bipolar disorder, depression, hopeless, panic disorder, schizophrenia, sleepless, suicidal, others Physical Exam General Appearance: No Apparent Distress HEENT: Other (Pupils and face symmetric. Moist mucous membranes.) Neck: Full Range of Motion, Normal Inspection Respiratory: Lungs Clear, No Accessory Muscle Use, No Respiratory Distress, Normal Breath Sounds Cardiovascular: No Edema, No JVD, Regular Rate/Rhythm Breast Exam: Deferred Gastrointestinal: Non Tender, Soft Genitalia: Deferred Pelvic: Deferred Rectal: Deferred Extremities: Normal inspection, Normal range of motion, Non-tender, No pedal edema Neurologic: Alert (Oriented x4), Normal Affect, Normal Mood, Other (Ambulatory) Cerebellar Function: NOT DONE Reflexes: NOT DONE Skin: Dry, Normal Color, Warm Lymphatic: NOT DONE EKG EKG : Pulse Rate (adult): 65 Cardiac Rhythm: NSR Block: RBBB Comments Sinus rhythm, rate 65, normal DE interval, QRS prolonged at 165, QTC 462, left axis deviation, possible old inferior infarct, right bundle-branch block, ST depression in leads V2 and V3 Was a procedure done? Was a procedure done?: No CP Differential Dx Differential Diagnosis: Angina, Anxiety / Panic Attack, AL Differential Diagnosis: Angina, Chest Wall Pain, Costochondritis, Esophageal reflux/spasm, Gastritis, Myocardial Infarction, Pneumonia X-Ray, Labs, Meds, VS Vital Signs Date Time Temp Pulse Resp B/P (MAP) Pulse Ox O2 Delivery O2 Flow Rate FiO2 03/27/25 22:14 97.8 62 18 148/71 (96) 96 97.8 03/27/25 22:14 62 18 96 Room Air 03/27/25 22:08 148/71 03/27/25 20:42 65 03/27/25 20:34 98.0 75 16 159/95 (116) 95 98.0 03/27/25 20:26 65 Lab Test 03/27/25 21:30 03/27/25 20:35 Range/Units Troponin I High Sensitivity 6 5 </=54 ng/L White Blood Count 7.0 4.4-10.8 10^3/uL Red Blood Count 4.31 L 4.5-5.90 10^6/uL Hemoglobin 13.0 L 13.5-17.5 g/dL Hematocrit 39.3 L 41.0-53.0 % Mean Corpuscular Volume 91.2 80.0-100.0 fL Mean Corpuscular Hemoglobin 30.2 28.0-32.0 pg Mean Corpuscular Hemoglobin Concent 33.1 32.0-36.0 g/dL Red Cell Distribution Width 14.0 11.8-14.3 % Platelet Count 211 140-450 10^3/uL Mean Platelet Volume 9.3 6.9-10.8 fL Neutrophils (%) (Auto) 52.4 37.0-80.0 % Lymphocytes (%) (Auto) 36.3 10.0-50.0 % Monocytes (%) (Auto) 7.0 0.0-12.0 % Eosinophils (%) (Auto) 3.9 0.0-7.0 % Basophils (%) (Auto) 0.4 0.0-2.0 % Neutrophils # (Auto) 3.7 1.6-8.6 10 ^3/uL Lymphocytes # (Auto) 2.5 0.4-5.4 10 ^3/uL Monocytes # (Auto) 0.5 0-1.3 10 ^3/uL Eosinophils # (Auto) 0.3 0-0.8 10 ^3/uL Basophils # (Auto) 0 0-0.2 10 ^3/uL Nucleated Red Blood Cells 0.1 % Sodium Level 141 136-145 mmol/L Potassium Level 3.9 3.5-5.1 mmol/L Chloride Level 108 H 98-107 mmol/L Carbon Dioxide Level 24 20-31 mmol/L Anion Gap 9 5-15 Blood Urea Nitrogen 19 9-23 mg/dL Creatinine 1.01 0.700-1.30 mg/dL Glomerular Filtration Rate Calc 87 >90 mL/min BUN/Creatinine Ratio 18.8 10.0-20.0 Serum Glucose 102 74-106 mg/dL Calcium Level 9.5 8.7-10.4 mg/dL B-Type Natriuretic Peptide 21.87 0-100 pg/mL Current Medications Medications (Trade) Dose Ordered Sig/Shaila Route Start Time Stop Time Status Last Admin Aspirin 162 mg ONCE ONCE PO 03/27/25 21:15 03/27/25 21:16 DC 03/27/25 21:56 Nitroglycerin (Nitrodur 0.2MG/ Hr) 1 patch ONCE ONCE TD 03/27/25 22:15 03/27/25 22:16 DC 03/27/25 22:08 CHEST RADIOGRAPH Indication: cp Technique: Single frontal view of the chest was obtained Comparison: XY CHEST PORTABLE on DOS: 11/19/23, XY CHEST PORTABLE on DOS: 06/26/23, XY CHEST PORTABLE on DOS: 04/17/23 FINDINGS: Lines and Tubes: None Lungs: No focal consolidation. Pleura: No effusion. No pneumothorax. Cardiomediastinal contours: Unremarkable Bones: No acute osseous abnormality. IMPRESSION: No acute cardiopulmonary disease. X-Ray, Labs, Meds, VS Comment 54-year-old male with history of hypertension, CAD, GERD, COPD and mitral valve prolapse complaining of chest pain Vitals remarkable for BP 159/95 Exam unremarkable Rhythm strip independently interpreted by me: Sinus rhythm, rate 65, no ectopy. Chest x-ray unremarkable CBC, metabolic panel, BNP, 2 serial troponins unremarkable Patient treated with the following in the ED: Aspirin 162 mg p.o., nitro patch to chest wall with improvement of symptoms. Plan is to admit the patient for Cardiology evaluation Time of 1ST Reevaluation: 20:34 Reevaluation 1ST: Unchanged Patient Education/Counseling: Diagnosis, Treatment Family Education/Counseling: No Family Present SEPSIS Sepsis Screen Physician Orders Electrocardigram (03/27/25 20:22) Troponin-I Hs (03/27/25 23:22) Electrocardigram (03/27/25 21:22) Electrocardigram (03/27/25 23:22) Chest Portable (03/27/25 21:01) Urinalysis (03/27/25 21:01) Vital Signs Date Time Temp Pulse Resp B/P (MAP) Pulse Ox O2 Delivery O2 Flow Rate FiO2 03/27/25 22:14 97.8 62 18 148/71 (96) 96 97.8 03/27/25 22:14 62 18 96 Room Air 03/27/25 22:08 148/71 03/27/25 20:42 65 03/27/25 20:34 98.0 75 16 159/95 (116) 95 98.0 03/27/25 20:26 65 Laboratory Tests Test 03/27/25 20:35 White Blood Count 7.0 10^3/uL (4.4-10.8) Medications Medications Dose Ordered Sig/Shaila Route Start Time Stop Time Status Last Admin Dose Admin Aspirin 162 mg ONCE ONCE PO 03/27/25 21:15 03/27/25 21:16 DC 03/27/25 21:56 Nitroglycerin 1 patch ONCE ONCE TD 03/27/25 22:15 03/27/25 22:16 DC 03/27/25 22:08 Departure 1 Departure Time of Disposition: 22:44 Impression: Primary Impression: Chest pain with high risk for cardiac etiology Disposition: ADMITTED INPATIENT Admit to: Tele Condition: Guarded Critical Care Note Critical Care Time?: Yes (35 min-critical care time only) Critical care comment: Critical care time including multiple bedside re-evaluations, review of lab and imaging studies, and discussion of the case with the admitting provider. Patient is high risk for hemodynamic decompensation. Stability Stability form required: No Heart Score Heart Score: Heart Score Response (Comments) Value History Moderate Suspicious [address]-Deviation 2 Age 45-64 1 Risk Factors >3 or Hx ASHD 2 Troponin Normal limit 0 Total 6 I personally scribed for VIRIDIANA ART MD (TATI) on 03/27/25 at 20:42. Electronically submitted by Pancho Joseph ([facility]). I personally scribed for VIRIDIANA ART MD (TATI) on 03/27/25 at 21:48. Electronically submitted by Pancho Joseph ([facility]). VIRIDIANA ART MD Mar 27, 2025 20:42
[2025-03-27 21:28] LABS: Basophils # (auto) 0 10 ^3/uL (0-0.2); Basophils % (auto) 0.4 % (0.0-2.0); Eosinophils # (auto) 0.3 10 ^3/uL (0-0.8); Eosinophils % (auto) 3.9 % (0.0-7.0); Hematocrit 39.3 % (41.0-53.0); Lymphocytes # (auto) 2.5 10 ^3/uL (0.4-5.4); Lymphocytes % (auto) 36.3 % (10.0-50.0); Mean Corpuscular Hemoglobin 30.2 pg (28.0-32.0); Mean Corpuscular Hgb Conc. 33.1 g/dL (32.0-36.0); Mean Corpuscular Volume 91.2 fL (80.0-100.0); Monocytes # (auto) 0.5 10 ^3/uL (0-1.3); Neutrophils # (auto) 3.7 10 ^3/uL (1.6-8.6); Neutrophils % (auto) 52.4 % (37.0-80.0); Nucleated Red Blood Cells % 0.1 %; Platelet Count (auto) 211 10^3/uL (140-450); Red Blood Cells 4.31 10^6/uL (4.5-5.90)
[2025-03-27 21:29] LABS: Potassium 3.9 mmol/L (3.5-5.1); Sodium 141 mmol/L (136-145)
[2025-03-27 21:30] LABS: Anion Gap 9 (5-15); Calcium 9.5 mg/dL (8.7-10.4); Carbon Dioxide 24 mmol/L (20-31)
[2025-03-27 21:35] LABS: BUN/Creatinine Ratio 18.8 (10.0-20.0); Blood Urea Nitrogen 19 mg/dL (9-23); Glucose 102 mg/dL (74-106)
--- NOTE | 2025-03-27 21:39 | DVH ---
CHEST RADIOGRAPH Indication: cp Technique: Single frontal view of the chest was obtained Comparison: XY CHEST PORTABLE on DOS: 11/19/23, XY CHEST PORTABLE on DOS: 06/26/23, XY CHEST PORTABLE o n DOS: 04/17/23 FINDINGS: Lines and Tubes: None Lungs: No focal consolidation. Pleura: No effusion. No pneumothorax. Cardiomediastinal contours: Unremarkable Bones: No acute osseous abnormality. IMPRESSION: No acute cardiopulmonary disease.
[2025-03-27 21:49] LABS: Chloride 108 mmol/L (98-107)
[2025-03-27] MEDS: ASPirin 81 mg TAB PO ONE (21:56)
[2025-03-27] MEDS: NITROGLYCERIN 0.4MG/HR TOPICAL PATCH TD ONE (22:06)
[2025-03-27] MEDS: NITROGLYCERIN 0.2MG/HR TOPICAL PATCH TD ONE (22:08)
[2025-03-27] MEDS ORDERED: LORazepam 2MG/ML-1ML VIAL IV PRN (23:45)
[2025-03-27] MEDS ORDERED: HYDROcodone-ACET 5/325MG TAB PO PRN (23:45)
[2025-03-27] MEDS ORDERED: ONDANSETRON HCL 4 MG/2 ML VIAL IV PRN (23:45)
[2025-03-27] MEDS ORDERED: hydrALAZINE HCL 20 MG/ML VL IV PRN (23:45)
--- NOTE | 2025-03-27 23:49 | DVHHP2 ---
History of Present Illness Reason for Visit: Chest pain with high risk for cardiac etiology History of Present Illness The patient is a 54-year-old male with multiple past medical history including Coronary artery disease, GERD, COPD, hyperlipidemia, and hypertension who presented to [facility] ED with complaint of chest pain. Patient seen here multiple times for chest pains, states he has been having constant midsternal chest pains, sharp, radiating down his left shoulder, getting worse that prompted this visit. Patient was seen and evaluated in the ED, laboratory data shows WBC 7.0, platelets 211, sodium 141, potassium 3.9, BUN 19, creatinine 1.01, glucose 87, calcium 9.5, BNP 21.87, troponin 6, blood pressure 148/71, heart rate 62, temperature 97.8 F, O2 saturation 96% on room air. Chest x-ray showed no acute cardiopulmonary disease. Please see medication orders section in the computer. On my assessment, patient denied chest pain, no headache, no dizziness, no shortness of breath, no nausea, no vomiting, no fever, no chills. Patient was admitted for further evaluation and medical management. Past Medical History Anxiety, CAD, COPD, GERD, High Lipids, HTN, Mitral valve prolapse Past Surgical History Left knee surgery Family History Reviewed, noncontributory to the management of this case. Past Social History The patient lives at home, denies smoking, alcohol or illicit drugs abuse. Review of Systems Constitutional: No: Fever, Chills, Sweats, Weakness, Malaise, Other Eyes: No: Pain, Vision change, Conjunctivae inflammation, Eyelid inflammation, Other, Redness ENT: No: Ear pain, Ear discharge, Nose pain, Nose discharge, Nose congestion, M outh pain, Mouth swelling, Throat pain, Throat swelling, Other Respiratory: No: Cough, Dry, Shortness of breath, SOB with excertion, Wheezing, Hemoptysis, Pleuritic Pain, Sputum, Wheezing, Other Cardiovascular: Chest Pain; No: Palpitations, Orthopnea, Paroxysmal Noc. Dyspnea, Edema, Lt Headedness, Other Gastrointestinal: No: Nausea, Vomiting, Abdominal Pain, Diarrhea, Constipation, Melena, Hematochezia, Other Genitourinary: No Dysuria, No Frequency, No Incontinence, No Hematuria, No Retention, No Other Musculoskeletal: No: other, neck pain, shoulder pain, arm pain, back pain, hand pain, leg pain, foot pain Skin: No: Rash, Lesions, Jaundice, Bruising, Other Neurological: No: Weakness, Numbness, Incoordination, Change in speech, Confu ashley, Seizures, Other Allergies: Coded Allergies: Metoclopramide (Verified Allergy, Mild, 05/08/21) Medications Current Medications Medications Dose Ordered Sig/Shaila Route Start Time Stop Time Status Last Admin Dose Admin Aspirin 81 mg DAILY PO 03/28/25 10:00 UNV Atorvastatin Calcium 20 mg HS PO 03/28/25 22:00 UNV Famotidine 20 mg DAILY IV 03/28/25 10:00 UNV Tamsulosin HCl 0.4 mg QPM PO 03/28/25 18:00 UNV Hydralazine HCl 10 mg Q6HP PRN IV 03/27/25 23:45 UNV Metoprolol Tartrate 12.5 mg BID PO 03/28/25 10:00 UNV Losartan Potassium 25 mg DAILY PO 03/28/25 10:00 UNV Sodium Chloride 10 ml Q8HR IV 03/28/25 06:00 UNV Acetaminophen/ Hydrocodone Bitart 1 tab Q4HP PRN PO 03/27/25 23:45 UNV Ondansetron HCl 4 mg Q4HP PRN IV 03/27/25 23:45 UNV Docusate Sodium 100 mg BIDPRN PRN PO 03/27/25 23:45 UNV Acetaminophen 650 mg Q6HP PRN PO 03/27/25 23:45 UNV Lorazepam 0.5 mg Q8HP PRN IV 03/27/25 23:45 UNV Exam Vital Signs Vital Signs Date Time Temp Pulse Resp B/P (MAP) Pulse Ox O2 Delivery O2 Flow Rate FiO2 03/27/25 22:14 97.8 62 18 148/71 (96) 96 97.8 03/27/25 22:14 Room Air General Appearance: Alert, Oriented X3, Cooperative, No acute distress HEENT: Atraumatic, PERRLA, EOMI, Mucous membr. moist/pink Respiratory: Clear to auscultation, Normal air movement Cardiovascular: Regular rate, Normal S1, Normal S2, No murmurs Abdominal: Normal bowel sounds, Soft, No tenderness, No hepatospenomegaly, No masses Extremities: No clubbing, No cyanosis, No edema, Normal pulses, No tenderness/swelling Skin: No rashes, No breakdown, No significant lesion Neuro: Normal speech, Normal tone, Sensation intact, Cranial nerves 3-12 NL, Reflexes 2+ Psych/Mental Status: Mental status NL, Mood NL Labs/Xrays Labs Test 03/27/25 21:30 03/27/25 20:35 Range/Units Troponin I High Sensitivity 6 </=54 ng/L White Blood Count 7.0 4.4-10.8 10^3/uL Red Blood Count 4.31 L 4.5-5.90 10^6/uL Hemoglobin 13.0 L 13.5-17.5 g/dL Hematocrit 39.3 L 41.0-53.0 % Mean Corpuscular Volume 91.2 80.0-100.0 fL Mean Corpuscular Hemoglobin 30.2 28.0-32.0 pg Mean Corpuscular Hemoglobin Concent 33.1 32.0-36.0 g/dL Red Cell Distribution Width 14.0 11.8-14.3 % Platelet Count 211 140-450 10^3/uL Mean Platelet Volume 9.3 6.9-10.8 fL Neutrophils (%) (Auto) 52.4 37.0-80.0 % Lymphocytes (%) (Auto) 36.3 10.0-50.0 % Monocytes (%) (Auto) 7.0 0.0-12.0 % Eosinophils (%) (Auto) 3.9 0.0-7.0 % Basophils (%) (Auto) 0.4 0.0-2.0 % Neutrophils # (Auto) 3.7 1.6-8.6 10 ^3/uL Lymphocytes # (Auto) 2.5 0.4-5.4 10 ^3/uL Monocytes # (Auto) 0.5 0-1.3 10 ^3/uL Eosinophils # (Auto) 0.3 0-0.8 10 ^3/uL Basophils # (Auto) 0 0-0.2 10 ^3/uL Nucleated Red Blood Cells 0.1 % Sodium Level 141 136-145 mmol/L Potassium Level 3.9 3.5-5.1 mmol/L Chloride Level 108 H 98-107 mmol/L Carbon Dioxide Level 24 20-31 mmol/L Anion Gap 9 5-15 Blood Urea Nitrogen 19 9-23 mg/dL Creatinine 1.01 0.700-1.30 mg/dL Glomerular Filtration Rate Calc 87 >90 mL/min BUN/Creatinine Ratio 18.8 10.0-20.0 Serum Glucose 102 74-106 mg/dL Calcium Level 9.5 8.7-10.4 mg/dL B-Type Natriuretic Peptide 21.87 0-100 pg/mL PATIENT: CADENCE BROWN ACCT: [id number] UNIT: [id number] : 1970 LOC: ER ROOM / BED: / AGE / SEX: 54 / M ADM STATUS: REG ER SERVICE 00 ORDERING PHYSICIAN: VIRIDIANA ART MD PROCEDURE(s): CXRP - CHEST PORTABLE REASON: cp ORDER NUMBER(s): [id number], ACCESSION NUMBER(s): [id number] CHEST RADIOGRAPH Indication: cp Technique: Single frontal view of the chest was obtained Comparison: XY CHEST PORTABLE on DOS: 11/19/23, XY CHEST PORTABLE on DOS: 06/26/23, XY CHEST PORTABLE on DOS: 04/17/23 FINDINGS: Lines and Tubes: None Lungs: No focal consolidation. Pleura: No effusion. No pneumothorax. Cardiomediastinal contours: Unremarkable Bones: No acute osseous abnormality. IMPRESSION: No acute cardiopulmonary disease. Assessment/Plan Assessment/Plan Chest pain with high risk for cardiac etiology Generalized weakness Plan 1. Admit to telemetry units 2. Breathing treatment 3. Pain control management 4. Management of fluids and electrolytes 5. Consultation for hospitalist 6. Diagnostic tests chest x-ray 7. DVT prophylaxis-on aspirin 8. Repeat labs CBC, CMP in a.m. 9. Continue with current medical management 10. Treatment plan discussed with patient and RN. Patient verbalized understanding. Plan discussed with: Patient, Other (RN) My Orders Orders - RICARDO CASTILLO DNP Procedure Category Date Status Time Aspirin Tablet PHA 03/28/25 Logged 10:00 Atorvastatin (Lipitor) PHA 03/28/25 Logged 22:00 Famotidine Injection PHA 03/28/25 Logged (Pepcid Injection) 10:00 Tamsulosin PHA 03/28/25 Logged Hydrochloride (Flomax) 18:00 Hydralazine Injection PHA 03/27/25 Logged (Apresoline Inject 23:45 Metoprolol Tartrate PHA 03/28/25 Logged Tablet (Lopressor Ta 10:00 Losartan Tablet PHA 03/28/25 Logged (Cozaar Tablet) 10:00 Allergies ZARI 03/27/25 In Process 23:32 Code Status CODE 03/27/25 Transmitted 23:32 Sodium Chloride Lock PHA 03/28/25 Logged (Saline Lock Ns) 06:00 Oxygen Per Hour RT 03/27/25 Transmitted 23:32 Hydrocodone-Acet PHA 03/27/25 Logged 5/325mg Tab ([place] 23:45 Ondansetron Hcl PHA 03/27/25 Logged (Zofran) 23:45 Docusate Sodium PHA 03/27/25 Logged Capsule (Colace 23:45 Complete Blood Count LAB 03/28/25 Verified 04:00 Comprehensive LAB 03/28/25 Verified Metabolic Panel 04:00 Cardiac DIET 03/28/25 Transmitted Diet-2gna,Lofat,Lochol Breakfast Condition: Serious ZARI 03/27/25 In Process 23:32 Acetaminophen Tablet PHA 03/27/25 Logged (Tylenol Tablet) 23:45 Bedrest With Bathroom ZARI 03/27/25 In Process Privileg 23:32 Sequential ZARI 03/27/25 In Process Compression Device Lorazepam 2mg/Ml Inj PHA 03/27/25 Logged (Ativan Inj) 23:45 Problem List: (1) Chest pain with high risk for cardiac etiology (2) Generalized weakness Date of Service: Mar 27, 2025 Billing Provider: RICARDO CASTILLO DNP Common Visit Codes: [id number] INP/OBS CARE (HIGH) RICARDO CASTILLO DNP Mar 27, 2025 23:49
[2025-03-28] MEDS ORDERED: MORPHINE SULFATE INJ 2 MG/ml SYRG IV PRN
[2025-03-28] MEDS ORDERED: NITROGLYCERIN 0.4 MG SL TAB SL PRN
[2025-03-28 03:55] VITALS: PULSE 62; RESP 17; O2SAT 94
[2025-03-28 04:31] LABS: Urine Bacteria None Seen /hpf (None Seen)
[2025-03-28 04:32] LABS: Urine Blood Negative /uL (Negative); Urine Clarity Clear (Clear); Urine Color Light-Yellow (Yellow); Urine Protein, UAD Negative (Negative); Urine Specific Gravity 1.015 (1.001-1.035); Urine Squamous Epithelial Cell None Seen /hpf (<5); Urine Urobilinogen Normal (Negative); Urine WBC 1 /HPF (0-3)
[2025-03-28 04:56] LABS: Basophils # (auto) 0.1 10 ^3/uL (0-0.2); Basophils % (auto) 0.9 % (0.0-2.0); Eosinophils # (auto) 0.3 10 ^3/uL (0-0.8); Eosinophils % (auto) 4.1 % (0.0-7.0); Hematocrit 40.5 % (41.0-53.0); Hemoglobin 13.8 g/dL (13.5-17.5); Lymphocytes # (auto) 2.5 10 ^3/uL (0.4-5.4); Lymphocytes % (auto) 35.8 % (10.0-50.0); Mean Corpuscular Hemoglobin 31.2 pg (28.0-32.0); Mean Corpuscular Hgb Conc. 34.1 g/dL (32.0-36.0); Mean Corpuscular Volume 91.5 fL (80.0-100.0); Monocytes # (auto) 0.6 10 ^3/uL (0-1.3); Neutrophils # (auto) 3.6 10 ^3/uL (1.6-8.6); Neutrophils % (auto) 51.2 % (37.0-80.0); Nucleated Red Blood Cells % 0.1 %; Platelet Count (auto) 216 10^3/uL (140-450); Red Blood Cells 4.43 10^6/uL (4.5-5.90); Red Cell Distribution Width 13.9 % (11.8-14.3)
[2025-03-28 05:14] LABS: Alanine Aminotransferase 30 U/L (7-40); Albumin 4.6 g/dL (3.2-4.8); Alkaline Phosphatase 102 U/L (46-116); Anion Gap 7 (5-15); Aspartate Aminotransferase 23 U/L (<34); BUN/Creatinine Ratio 17.3 (10.0-20.0); Blood Urea Nitrogen 18 mg/dL (9-23); Calcium 9.4 mg/dL (8.7-10.4); Carbon Dioxide 27 mmol/L (20-31); Chloride 107 mmol/L (98-107); Glucose 103 mg/dL (74-106); Potassium 3.9 mmol/L (3.5-5.1); Sodium 141 mmol/L (136-145); Total Protein 6.6 g/dL (5.7-8.2)
[2025-03-28 05:15] LABS: Bilirubin, Total 0.5 mg/dL (0.2-1.0)
[2025-03-28] MEDS: SODIUM CHLOR 0.9% PF (SALINE LOCK) 10ML VIAL/SYR IV SCH (06:04)
[2025-03-28 08:00] VITALS: PULSE 53; RESP 12; O2SAT 94
--- NOTE | 2025-03-28 09:14 | DVHPN2 ---
Subjective Decreasing frequency of chest discomfort Reviewed: Care Plan, H&P, Labs, Medications, Previous Orders, Radiology Changes from previous H/P or p: Changes Objective Vitals Vital Signs Date Time Temp Pulse Resp B/P (MAP) Pulse Ox O2 Delivery O2 Flow Rate FiO2 03/28/25 08:00 97.6 57 12 141/83 (102) 94 97.6 03/28/25 08:00 Room Air* 0 21 General Appearance: Alert, Oriented X3, Cooperative, No acute distress HEENT: Atraumatic Lungs: Clear to auscultation, Normal air movement Cardiovascular: Regular rate, Normal S1, Normal S2, No murmurs Abdomen: Normal bowel sounds, Soft, No tenderness Extremities: No edema Neuro: Normal speech, Cranial nerves 3-12 NL Skin: Other (Many tattoos) Psych/Mental Status: Mental status NL, Mood NL Medications Current Medications Medications Dose Ordered Sig/Shaila Route Start Time Stop Time Status Last Admin Dose Admin Aspirin 81 mg DAILY PO 03/28/25 10:00 Atorvastatin Calcium 20 mg HS PO 03/28/25 22:00 Famotidine 20 mg DAILY IV 03/28/25 10:00 Tamsulosin HCl 0.4 mg QPM PO 03/28/25 18:00 Hydralazine HCl 10 mg Q6HP PRN IV 03/27/25 23:45 Metoprolol Tartrate 12.5 mg BID PO 03/28/25 10:00 Losartan Potassium 25 mg DAILY PO 03/28/25 10:00 Sodium Chloride 10 ml Q8HR IV 03/28/25 06:00 03/28/25 06:04 10 ML Acetaminophen/ Hydrocodone Bitart 1 tab Q4HP PRN PO 03/27/25 23:45 Ondansetron HCl 4 mg Q4HP PRN IV 03/27/25 23:45 Docusate Sodium 100 mg BIDPRN PRN PO 03/27/25 23:45 Acetaminophen 650 mg Q6HP PRN PO 03/27/25 23:45 Lorazepam 0.5 mg Q8HP PRN IV 03/27/25 23:45 Nitroglycerin 0.4 mg Q5MINP PRN SL 03/28/25 00:00 Morphine Sulfate 2 mg Q30M PRN IV 03/28/25 00:00 Laboratory Results Laboratory Tests 03/28/25 04:45 Chemistry Test 03/27/25 20:35 03/28/25 04:45 Calcium Level 9.5 mg/dL (8.7-10.4) 9.4 mg/dL (8.7-10.4) Albumin 4.6 g/dL (3.2-4.8) Total Protein 6.6 g/dL (5.7-8.2) Cardiac Markers Test 03/27/25 20:35 B-Type Natriuretic Peptide 21.87 pg/mL (0-100) LFT Test 03/28/25 04:45 Alanine Aminotransferase (ALT) 30 U/L (7-40) Alkaline Phosphatase 102 U/L (46-116) Aspartate Amino Transferase (AST) 23 U/L (<34) Total Bilirubin 0.5 mg/dL (0.2-1.0) Urinalysis Test 03/28/25 04:16 Urine Color Light-yellow (Yellow) Urine Clarity Clear (Clear) Urine pH 5.0 (5.0-9.0) Urine Specific [place] 1.015 (1.001-1.035) Urine Protein Negative (Negative) Urine Ketones Negative (Negative) Urine Blood Negative /uL (Negative) Urine Nitrite Negative (Negative) Urine Bilirubin Negative (Negative) Urine Urobilinogen Normal mg/dL (Negative) Urine Leukocyte Esterase Negative /uL (Negative) Urine RBC 1 /hpf (0 - 3) Urine Microscopic WBC 1 /HPF (0-3) Urine Squamous Epithelial Cells None seen /hpf (<5) Urine Bacteria None seen /hpf (None Seen) Urine Glucose Normal mg/dL (Normal) Labs and/or images reviewed: Labs reviewed by me, Image(s) reviewed by me Assessment/Plan Assessment/Plan A 54-year-old male patient; with essential hypertension, COPD, dyslipidemia, nicotine use disorder, and obesity; who presented to the emergency department with chest pain/heaviness. #Chest pain; on and off chest heaviness; continue aspirin and statin; no ischemic changes on EKG; telemetry; consulted primary cadd instructor Dr. Deleon; continue monitoring #Hypertensive heart disease without heart failure; continue antihypertensive medications and adjust accordingly; continue monitoring #Dyslipidemia; continue home statin; continue monitoring #COPD; not in exacerbation; not on any treatment; not on home oxygen; continue monitoring #Chronic neck pain with associated headaches; status post steroids injection in the neck two weeks ago; to follow up with pain management as outpatient; continue pain management as needed as inpatient; continue monitoring #Nicotine use disorder; counseled the patient on nicotine use cessation for 16 minutes #Obesity; counseled the patient on the importance of adopting healthy lifestyle with diet and exercise in order to lose weight Goals of care discussed for 20 minutes; full code Late Entry. This medical document was created using an electronic medical record system with computerized dictation system. Although this document has been carefully reviewed, there might still be some phonetic and typographical errors. These areas are purely typographical due to imperfections of the software programs, and do not reflect any compromise in the patient's medical care. Plan discussed with: Patient, Other (Nurse) My Orders Orders - VERITO CARTWRIGHT MD Procedure Category Date Status Time * Cardiology Consult CONS 03/28/25 Transmitted 09:12 Date of Service: Mar 28, 2025 Billing Provider: VERITO CARTWRIGHT MD Common Visit Codes: [id number] INP/OBS CARE(HIGH) Secondary Visit Codes: 22756-ROBDI CHNG SMOKING >10MIN (16 minutes on nicotine vaping cessation), 59059-[id number] CARE PLAN 30 MINUTES (20 minutes) VERITO CARTWRIGHT MD Mar 28, 2025 09:14
[2025-03-28] MEDS: LOSARTAN POTASSIUM 25 MG TAB PO SCH (10:00)
[2025-03-28] MEDS: METOPROLOL TARTRATE 25 MG TAB PO SCH (10:00)
[2025-03-28 10:34] VITALS: BP 128/72; PULSE 64; RESP 18; TEMP 97.5; O2SAT 95
[2025-03-28 12:53] VITALS: BP 128/78; PULSE 72; RESP 15; TEMP 98.6; O2SAT 96
[2025-03-28] MEDS: ASPirin 81 mg TAB PO SCH (14:11)
[2025-03-28] MEDS: FAMOTIDINE (10MG/ML) 2ML VL IV SCH (14:16)
[2025-03-28] MEDS: TAMSULOSIN HYDROCHLORIDE 0.4 MG CAP PO SCH (18:26)
[2025-03-28 20:00] VITALS: PULSE 70
[2025-03-28 21:00] VITALS: BP 128/69; PULSE 81; RESP 18; TEMP 97.8; O2SAT 98
[2025-03-28] MEDS: ATORVASTATIN 20 MG TAB PO SCH (21:06)
[2025-03-28] MEDS: DOCUSATE SOD 100 MG CAP PO PRN (21:12)
[2025-03-29 05:00] VITALS: BP 132/76; PULSE 71; RESP 17; TEMP 98.1; O2SAT 96
[2025-03-29] MEDS: ACETAMINOPHEN 325 MG TAB PO PRN (06:13)
[2025-03-29 08:00] VITALS: PULSE 87
[2025-03-29 09:00] VITALS: BP 128/74; PULSE 70; RESP 16; TEMP 97.9; O2SAT 97
[2025-03-29 09:54] LABS: Anion Gap 11 (5-15); Carbon Dioxide 25 mmol/L (20-31); Chloride 106 mmol/L (98-107); Potassium 3.6 mmol/L (3.5-5.1); Sodium 142 mmol/L (136-145)
[2025-03-29 09:55] LABS: Calcium 9.9 mg/dL (8.7-10.4)
[2025-03-29 10:00] LABS: BUN/Creatinine Ratio 14.1 (10.0-20.0); Blood Urea Nitrogen 14 mg/dL (9-23)
[2025-03-29 10:01] LABS: Glucose 183 mg/dL (74-106)
--- NOTE | 2025-03-29 11:04 | ECG ---
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
[2025-03-29] MEDS ORDERED: NITR0.4S29 SL (11:41)
--- NOTE | 2025-03-29 11:44 | DVHDS2 ---
Discharge Summary Date of Admission Mar 27, 2025 at 23:47 Date of Discharge: Mar 29, 2025 Admitting Diagnosis Chest pain/discomfort/heaviness Wounds: None Labs/Diagnostic Data: Laboratory Results Test 03/29/25 08:35 03/28/25 04:45 03/28/25 04:16 03/27/25 21:30 Sodium Level 142 mmol/L (136-145) Potassium Level 3.6 mmol/L (3.5-5.1) Chloride Level 106 mmol/L (98-107) Carbon Dioxide Level 25 mmol/L (20-31) Anion Gap 11 (5-15) Blood Urea Nitrogen 14 mg/dL (9-23) Creatinine 0.99 mg/dL (0.700-1.30) Glomerular Filtration Rate Calc 89 mL/min (>90) BUN/Creatinine Ratio 14.1 (10.0-20.0) Serum Glucose 183 mg/dL (74-106) Calcium Level 9.9 mg/dL (8.7-10.4) White Blood Count 7.0 10^3/uL (4.4-10.8) Red Blood Count 4.43 10^6/uL (4.5-5.90) Hemoglobin 13.8 g/dL (13.5-17.5) Hematocrit 40.5 % (41.0-53.0) Mean Corpuscular Volume 91.5 fL (80.0-100.0) Mean Corpuscular Hemoglobin 31.2 pg (28.0-32.0) Mean Corpuscular Hemoglobin Concent 34.1 g/dL (32.0-36.0) Red Cell Distribution Width 13.9 % (11.8-14.3) Platelet Count 216 10^3/uL (140-450) Mean Platelet Volume 8.8 fL (6.9-10.8) Neutrophils (%) (Auto) 51.2 % (37.0-80.0) Lymphocytes (%) (Auto) 35.8 % (10.0-50.0) Monocytes (%) (Auto) 8.0 % (0.0-12.0) Eosinophils (%) (Auto) 4.1 % (0.0-7.0) Basophils (%) (Auto) 0.9 % (0.0-2.0) Neutrophils # (Auto) 3.6 10 ^3/uL (1.6-8.6) Lymphocytes # (Auto) 2.5 10 ^3/uL (0.4-5.4) Monocytes # (Auto) 0.6 10 ^3/uL (0-1.3) Eosinophils # (Auto) 0.3 10 ^3/uL (0-0.8) Basophils # (Auto) 0.1 10 ^3/uL (0-0.2) Nucleated Red Blood Cells 0.1 % Total Bilirubin 0.5 mg/dL (0.2-1.0) Aspartate Amino Transferase (AST) 23 U/L (<34) Alanine Aminotransferase (ALT) 30 U/L (7-40) Alkaline Phosphatase 102 U/L (46-116) Total Protein 6.6 g/dL (5.7-8.2) Albumin 4.6 g/dL (3.2-4.8) Urine Color Light-yellow (Yellow) Urine Clarity Clear (Clear) Urine pH 5.0 (5.0-9.0) Urine Specific [place] 1.015 (1.001-1.035) Urine Protein Negative (Negative) Urine Ketones Negative (Negative) Urine Blood Negative /uL (Negative) Urine Nitrite Negative (Negative) Urine Bilirubin Negative (Negative) Urine Urobilinogen Normal mg/dL (Negative) Urine Leukocyte Esterase Negative /uL (Negative) Urine RBC 1 /hpf (0 - 3) Urine Microscopic WBC 1 /HPF (0-3) Urine Squamous Epithelial Cells None seen /hpf (<5) Urine Bacteria None seen /hpf (None Seen) Urine Glucose Normal mg/dL (Normal) Troponin I High Sensitivity 6 ng/L (</=54) Test 03/27/25 20:35 B-Type Natriuretic Peptide 21.87 pg/mL (0-100) Other Laboratory Tests 03/29/25 08:35 03/28/25 04:45 Brief Hx & Hospital Course: A 54-year-old male patient; with essential hypertension, COPD, dyslipidemia, nicotine use disorder, and obesity; who presented to the emergency department with chest pain/heaviness. #Atypical chest pain; on and off chest heaviness/discomfort; continue home aspirin and statin; no ischemic changes on EKG and negative troponin trending; was telemetry; cleared by primary patient relations representative Dr. Deleon; prescribed sublingual nitroglycerin 0.4 mg as needed for chest discomfort/heaviness/pain; to follow up with primary patient relations representative Dr. Deleon within 1 to 2 weeks #Hypertensive heart disease without heart failure; continue home antihypertensive medications and adjust accordingly; to follow up with the primary care provider or discharge clinic within one week #Dyslipidemia; continue home statin; to follow up with the primary care provider or discharge clinic within one week #COPD; not in exacerbation; not on any treatment; not on home oxygen; to follow up with the primary care provider or discharge clinic within one week #Chronic neck pain with associated headaches; status post steroids injection in the neck two weeks ago; was on pain management as needed as inpatient; to follow up with pain management as outpatient as scheduled #Nicotine use disorder; counseled the patient on nicotine use cessation; to follow up with the primary care provider or discharge clinic within one week #Obesity; counseled the patient on the importance of adopting healthy lifestyle with diet and exercise in order to lose weight; to follow up with the primary care provider or discharge clinic within one week Physical examination on day of discharge: General Appearance: Alert, Oriented X3, Cooperative, No acute distress HEENT: Atraumatic Lungs: Clear to auscultation, Normal air movement Cardiovascular: Regular rate, Normal S1, Normal S2, No murmurs Abdomen: Normal bowel sounds, Soft, No tenderness Extremities: No edema Neuro: Normal speech, Cranial nerves 3-12 NL Skin: Other (Many tattoos) Psych/Mental Status: Mental status NL, Mood NL This medical document was created using an electronic medical record system with computerized dictation system. Although this document has been carefully reviewed, there might still be some phonetic and typographical errors. These areas are purely typographical due to imperfections of the software programs, and do not reflect any compromise in the patient's medical care. Consults/Reason for consult Cardiology for chest pain Condition at Discharge: Stable Final Diagnosis/Problems List Atypia chest pain; cleared by Cardiology to be discharged Discharge Disposition: Home Discharge Instruct/Medications Diet: Cardiac 2g Na,low cholest Activity: No Restrictions, As Tolerated Follow Up/Referral: To follow up with Dr. Deleon patient relations representative within 1 to 2 weeks; to follow up with primary care provider or discharge clinic within one week Medications: To continue home medications; prescribed nitroglycerin sublingually as needed for chest pain Discharge Statement: "Patient was advised to return to the ER or call 911 if any headaches, dizziness, shortness of breath, chest pain, abdominal pain, bleeding, fevers, or worsening of medical condition. Patient was counseled about treatment plan, medications, possible side effects, patientverbalized understanding. All questions were answered to the best of my ability. This discharge took greater then 30 minutes in planning, reviewing documentation, counseling the patient, and discussing with other team members." ASSESSMENT ASSESSMENT Assessment Atypical chest pain; cleared by Cardiology to be discharged Rest of diagnoses as above Date of Service: Mar 29, 2025 Billing Provider: VERITO CARTWRIGHT MD Common Visit Codes: 26568-PIC/OBS DISCH DAY >30min VERITO CARTWRIGHT MD Mar 29, 2025 11:44
--- NOTE | 2025-03-29 11:52 | DVHINCON2 ---
Date of service: Mar 29, 2025 History of Present Illness HPI Patient is a 54-year-old gentleman who presented to the hospital with chest discomfort. He had gone for some pain management and received some injection for it. After that did feel some chest pain and decided come to the hospital. After arriving to the hospital, the patient received some nitroglycerin and felt a lot better. Cardiology is involved for cardiac aspects of care. Patient is k nown to our practice from outside and before. Since arrival in the hospital, patient's serial high sensitive troponin has been negative. EKG has been nonrevealing (patient has baseline history of right bundle branch block in EKG). Home Meds Active Scripts Acetaminophen (Acetaminophen Extra Stren) 500 Mg Tab, 500 MG PO QIDPRN for 10 Days, #40 TAB Prov:JACKELINEMERISSALEVARKaila Nacho DO 11/20/23 Reported Medications Tiotropium [place] Monohydrate (Spiriva Respimat) 1.25 Mcg/Act Aer, 1.25 MCG IN, AER 06/27/23 Ranolazine (Ranolazine ER) 1,000 Mg Tab, 1000 MG PO, TAB 06/27/23 Atorvastatin Calcium (ATORVASTATIN CALCIUM) 20 Mg Tab, 1 TAB PO DAILY, #30 TAB 5 Refills 06/27/23 Oxymetazoline Hcl (AFRIN 12 HOUR) 0.05 % Spr, 2 SPRAY NA BID, #15 ML 06/27/23 Aspirin (Aspir-Low) 81 Mg Tab, 81 MG PO DAILY for 30 Days, MG 06/27/23 Hydrocodone-Acetaminophen (Hydrocodone Bitartrate/AC 10-325 mg) 1 Tab Tab, 1 TAB PO, TAB 06/27/23 Famotidine (Famotidine) 20 Mg Tab, 20 MG PO BID for 30 Days, MG 06/27/23 Tamsulosin Hcl (Tamsulosin Hcl) 0.4 Mg Cap, 1 CAP PO DAILY 06/27/23 Losartan Potassium (Losartan Potassium) 50 Mg Tab, 1 TAB PO DAILY 06/27/23 Metoprolol Tartrate (Lopressor) 25 Mg Tb, 1 TAB PO BID 06/27/23 Discontinued Reported Medications Bupropion Hcl (Bupropion Hcl) 100 Mg Tab, 150 MG PO, TAB 06/27/23 Isosorbide Mononitrate (Isosorbide Mononitrate Er) 30 Mg Tab, 1 TAB PO BID 06/27/23 Past Medical History Others Past medical history includes hypertension, hyperlipidemia, COPD, fatty liver di sease, obstructive sleep apnea, history of mitral valve prolapse, hiatal hernia, anxiety and old history of left knee surgery. Does have family history for coronary artery disease. Is known to have right bundle branch block in EKG. Patient Family History: FH: stroke G8 MOTHER Ischemic heart disease G8 FATHER Smoker: Quit Drugs: Marijuana Lives with: With family Review of Systems Constitutional: No symptom reported Ears, Nose, & Throat: No symptom reported All Other Systems 14 point review of system was performed. Relevant findings as per above and as per HPI. Otherwise negative. H&P Exam Vital Signs Vital Signs Date Time Temp Pulse Resp B/P (MAP) Pulse Ox O2 Delivery O2 Flow Rate FiO2 03/29/25 10:38 72 135/84 03/29/25 09:00 97.9 16 97 97.9 03/29/25 08:00 Room Air* 0 21 General Appeara: Well developed Head Exam: Normal inspection Neck Exam: Normal inspection Eye Exam: bilateral eye PERRL Mouth: Normal Inspection Pulmonary/Respiratory: Lungs clear Cardiovascular/Chest: Regular rate, Systolic murmur Peripheral Pulses: 2+ carotid (R), 2+ carotid (L), 2+ femoral (R), 2+ femoral (L), 2+ dorsalis pedis (R), 2+ dorsalis pedis (L), 2+ Radial (R), 2+ Radial (L) Abdominal Exam: Normal bowel sounds, Soft, No hepatospenomegaly Neuro/Mental St: Alert, Oriented Appearance: Appropriate appearance Eye contact/ Speech: Cooperative, Good eye contact Labs/Xrays Labs Test 03/29/25 08:35 03/28/25 04:45 03/28/25 04:16 03/27/25 21:30 Range/Units Sodium Level 142 136-145 mmol/L Potassium Level 3.6 3.5-5.1 mmol/L Chloride Level 106 98-107 mmol/L Carbon Dioxide Level 25 20-31 mmol/L Anion Gap 11 5-15 Blood Urea Nitrogen 14 9-23 mg/dL Creatinine 0.99 0.700-1.30 mg/dL Glomerular Filtration Rate Calc 89 >90 mL/min BUN/Creatinine Ratio 14.1 10.0-20.0 Serum Glucose 183 H 74-106 mg/dL Calcium Level 9.9 8.7-10.4 mg/dL White Blood Count 7.0 4.4-10.8 10^3/uL Red Blood Count 4.43 L 4.5-5.90 10^6/uL Hemoglobin 13.8 13.5-17.5 g/dL Hematocrit 40.5 L 41.0-53.0 % Mean Corpuscular Volume 91.5 80.0-100.0 fL Mean Corpuscular Hemoglobin 31.2 28.0-32.0 pg Mean Corpuscular Hemoglobin Concent 34.1 32.0-36.0 g/dL Red Cell Distribution Width 13.9 11.8-14.3 % Platelet Count 216 140-450 10^3/uL Mean Platelet Volume 8.8 6.9-10.8 fL Neutrophils (%) (Auto) 51.2 37.0-80.0 % Lymphocytes (%) (Auto) 35.8 10.0-50.0 % Monocytes (%) (Auto) 8.0 0.0-12.0 % Eosinophils (%) (Auto) 4.1 0.0-7.0 % Basophils (%) (Auto) 0.9 0.0-2.0 % Neutrophils # (Auto) 3.6 1.6-8.6 10 ^3/uL Lymphocytes # (Auto) 2.5 0.4-5.4 10 ^3/uL Monocytes # (Auto) 0.6 0-1.3 10 ^3/uL Eosinophils # (Auto) 0.3 0-0.8 10 ^3/uL Basophils # (Auto) 0.1 0-0.2 10 ^3/uL Nucleated Red Blood Cells 0.1 % Total Bilirubin 0.5 0.2-1.0 mg/dL Aspartate Amino Transferase (AST) 23 <34 U/L Alanine Aminotransferase (ALT) 30 7-40 U/L Alkaline Phosphatase 102 46-116 U/L Total Protein 6.6 5.7-8.2 g/dL Albumin 4.6 3.2-4.8 g/dL Urine Color Light-yellow Yellow Urine Clarity Clear Clear Urine pH 5.0 5.0-9.0 Urine Specific [place] 1.015 1.001-1.035 Urine Protein Negative Negative Urine Ketones Negative Negative Urine Blood Negative Negative /uL Urine Nitrite Negative Negative Urine Bilirubin Negative Negative Urine Urobilinogen Normal Negative mg/dL Urine Leukocyte Esterase Negative Negative /uL Urine RBC 1 0 - 3 /hpf Urine Microscopic WBC 1 0-3 /HPF Urine Squamous Epithelial Cells None seen <5 /hpf Urine Bacteria None seen None Seen /hpf Urine Glucose Normal Normal mg/dL Troponin I High Sensitivity 6 </=54 ng/L Test 03/27/25 20:35 Range/Units B-Type Natriuretic Peptide 21.87 0-100 pg/mL Assessment/Plan Plan Patient is a 54-year-old gentleman who presented to the hospital with chest discomfort. He had gone for some pain management and received some injection for it. After that did feel some chest pain and decided come to the hospital. After arriving to the hospital, the patient received some nitroglycerin and felt a lot better. Cardiology is involved for cardiac aspects of care. Patient is known to our practice from outside and before. Since arrival in the hospital, patient's serial high sensitive troponin has been negative. EKG has been nonrevealing (patient has baseline history of right bundle branch block in EKG). Not in acute distress, physically fit gentleman, no JVD, mucosa is pink and wet. No carotid bruit. No goiter. Chest is clear to auscultation. Cardiac: Regular, no thrill/gallop. Abdomen is soft. No hepatomegaly. No gross mass. Extremities do not reveal edema. Dorsalis pedis is 2+ bilateral Past medical history includes hypertension, hyperlipidemia, COPD, fatty liver disease, obstructive sleep apnea, history of mitral valve prolapse, hiatal hernia, anxiety and old history of left knee surgery. Does have family history for coronary artery disease. Is known to have right bundle branch block in EKG. Nuclear stress test of May 25, 2023: No ischemia, fixed inferior defect Left heart catheterization of 2018 had only revealed mild coronary disease and ejection fraction of 65% Echocardiogram of December 27, 2022 (performed in the office) revealed preserved systolic function, LVH, mild mitral valve prolapse, mild MR/TR/PI Echocardiogram of December 18, 2024 (performed in the office) revealed ejection fraction of 65-70%, mild concentric left ventricular hypertrophy, moderate mitral valve prolapse, trace TR/PI/AI, right ventricular systolic pressure of 35 mm Hg and aortic root of 3.9 cm. Creatinine: 1.01 - 1.04 - 0.99 Potassium: 3.9 - 3.9 - 3.6 Troponin (high sensitive): 5 - 6 BNP: 21.87 Chest x-ray revealed: IMPRESSION: No acute cardiopulmonary disease. EKG revealed sinus rhythm with right bundle branch block Tele reveals sinus rhythm Patient is a 54-year-old gentleman who presented with chest discomfort. Pain has been atypical. It started after injection to the neck for some pain management. Serial high sensitive troponin has been negative. There has been no new EKG changes. Acute coronary syndrome is not considered that the time. Atypical chest pain COPD Hypertension Hyperlipidemia. MVP, history of Cardiac suggestion for management: Follow-up electrolytes and kidney function test and correct abnormalities May use sublingual nitroglycerin (0.4 mg) p.r.n. for chest discomfort Lifestyle and risk factor modifications No indication for ischemic workup at this point. Cardiology follow-up as outpatient. A total of 75 minutes was spent reviewing the patient record, examining the patient, making a diagnostic and therapeutic plan, discussing this plan with medical personnel, following up on diagnostic studies and following the patient for clinical stability excluding any and all procedures. At least 50% of this time was spent in direct, [id number] contact. Thank you for allowing me to participate in this patient's care. Further recommendations will depend on patient's clinical course. Please do not hesitate to contact me if you have any questions or concerns. This medical document was created using electronic medical record system with [employer] dictation system. Although this document has been carefully reviewed, there may still be some phonetic and typographical errors. These areas are purely typographical due to the imperfection of the software programs, and do not reflect any compromise in the patient's medical care. Plan discussed with: Patient, Other (nurse) ODILIA MAGAÑA MD Mar 29, 2025 11:52
[2025-03-29 12:09] VITALS: BP 130/69; PULSE 75; TEMP 36.6
== END 2025-03-29 12:35 | disposition home or self-care (01) | DRG 203 ==
LOC: ER 20:20 → OVERFLOW 23:47 → TELE-CENTR 03-28 18:51
PROVIDERS: ADMIT Internal Medicine; ATTEND Internal Medicine
DX: M94.0 Chondrocostal junction syndrome [Tietze] (principal); I11.9 Hypertensive heart disease without heart failure; K76.0 Fatty (change of) liver, not elsewhere classified; E66.9 Obesity, unspecified; I25.10 Atherosclerotic heart disease of native coronary artery without angina pectoris; E78.5 Hyperlipidemia, unspecified; J44.9 Chronic obstructive pulmonary disease, unspecified; K21.9 Gastro-esophageal reflux disease without esophagitis; F41.9 Anxiety disorder, unspecified; G89.29 Other chronic pain; Z88.8 Allergy status to other drugs, medicaments and biological substances; Z79.899 Other long term (current) drug therapy; Z79.82 Long term (current) use of aspirin; Z82.49 Family history of ischemic heart disease and other diseases of the circulatory system; Z72.0 Tobacco use; Z68.30 Body mass index [BMI] 30.0-30.9, adult
CPT/HCPCS: 36415; 71045; 80048; 80053; 81001; 83880; 84484; 85025; 93005; 99291; G0378; J3490

== ENCOUNTER 2025-08-29 04:32 | Emergency (ER) | payer OTHER ==
[~2025-08-29] VITALS: Ht 177.8 cm; Wt 92.7 kg
[~2025-08-29 04:32] MED LIST changes: -BUPR-346 PO; -ISOS1TAB28 PO; +NITR0.4S29 SL
--- NOTE | 2025-08-29 05:03 | ED.PDOC ---
General HPI Comments 54-year-old male who came to ER for urinary retention. Patient has a history of prostatic hypertrophy, takes Flomax for it. In the past 3 hours, he has been unable to urinate, has been complaining of suprapubic abdominal pain and pressure. Chief Complaint: Urinary Time Seen by MD: 05:02 Primary Care Provider: FRANSISCO Reviewed notes: Nurses Notes Allergies: Coded Allergies: Metoclopramide (Verified Allergy, Mild, 05/08/21) Home Meds Active Scripts Nitroglycerin (NTROSTAT SUBLINGUAL) 0.4 Mg Sl, 0.4 MG SL Q4HPRN PRN for 30 Days, #60 TAB *MAY REPEAT EVERY 5 MINUTES X 3 TOTAL IF NO RELIEF, INITIATE ANALGESIC THERAPY. NOTIFY PHYSICIAN *Do not crush. Prov:VERITO CARTWRIGHT MD 03/29/25 Acetaminophen (Acetaminophen Extra Stren) 500 Mg Tab, 500 MG PO QIDPRN for 10 Days, #40 TAB Prov:DUSTIN VIVEROS DO 11/20/23 Reported Medications Tiotropium Holly Monohydrate (Spiriva Respimat) 1.25 Mcg/Act Aer, 1.25 MCG IN, AER 06/27/23 Ranolazine (Ranolazine ER) 1,000 Mg Tab, 1000 MG PO, TAB 06/27/23 Atorvastatin Calcium (ATORVASTATIN CALCIUM) 20 Mg Tab, 1 TAB PO DAILY, #30 TAB 5 Refills 06/27/23 Oxymetazoline Hcl (AFRIN 12 HOUR) 0.05 % Spr, 2 SPRAY NA BID, #15 ML 06/27/23 Aspirin (Aspir-Low) 81 Mg Tab, 81 MG PO DAILY for 30 Days, MG 06/27/23 Hydrocodone-Acetaminophen (Hydrocodone Bitartrate/AC 10-325 mg) 1 Tab Tab, 1 TAB PO, TAB 06/27/23 Famotidine (Famotidine) 20 Mg Tab, 20 MG PO BID for 30 Days, MG 06/27/23 Tamsulosin Hcl (Tamsulosin Hcl) 0.4 Mg Cap, 1 CAP PO DAILY 06/27/23 Losartan Potassium (Losartan Potassium) 50 Mg Tab, 1 TAB PO DAILY 06/27/23 Metoprolol Tartrate (Lopressor) 25 Mg Tb, 1 TAB PO BID 06/27/23 Information Source: Patient Mode of Arrival: Ambulatory Past Medical History PAST MEDICAL HISTORY: Anxiety, CAD, COPD, GERD, High Lipids, HTN Past Medical History (Other): Benign prostatic hypertrophic Family History Family History: Reviewed,noncontributory to illness, Family hx of heart jemal, Family hx of stroke Social History Smoker: Non-Smoker, Quit Greater Than 1 Year, Other Alcohol: Occasionally Drugs: Marijuana Lives In: Home Constitutional: denies: chills, diaphoresis, fatigue, fever, malaise, sweats, weakness, others EENTM: denies: blurred vision, double vision, ear bleeding, ear discharge, ear drainage, ear pain, ear ringing, eye pain, eye redness, hearing loss, mouth pain, mouth swelling, nasal discharge, nose bleeding, nose congestion, nose pain, photophobia, tearing, throat pain, throat swelling, voice changes, others Respiratory: denies: cough, hemoptysis, orthopnea, SOB at rest, shortness of breath, SOB with excertion, stridor, wheezing, others Cardiovascular: denies: chest pain, dizzy spells, diaphoresis, Dyspnea on exertion, edema, irregular heart beat, left arm pain, lightheadedness, palpitations, PND, syncope, others Gastrointestinal: reports: abdominal pain; denies: abdomen distended, blood streaked bowels, constipated, diarrhea, dysphagia, difficulty swallowing, hematemesis, melena, nausea, poor appetite, poor fluid intake, rectal bleeding, rectal pain, vomiting, others Genitourinary: reports: others (Urinary retention); denies: burning, dysuria, flank pain, frequency, hematuria, incontinence, penile discharge, penile sore, pain, testicle pain, testicle swelling, urgency Neurological: denies: dizziness, fainting, headache, left sided numbness, left sided weakness, numbness, paresthesia, pre-existing deficit, right sided numbness, right sided weakness, seizure, speech problems, tingling, tremors, weakness, others Musculoskeletal: denies: back pain, gout, joint pain, joint swelling, muscle pain, muscle stiffness, neck pain, others Integumetry: denies: bruises, change in color, change in hair/nails, dryness, laceration, lesions, lumps, rash, wounds, others Allergic/Immunocompromised: denies: Difficulty Healing, Frequent Infections, Hives, Itching, others Hematologic/Lymphatic: denies: anemia, blood clots, easy bleeding, easy bruisi ng, swollen glands, others Endocrine: denies: excessive hunger, excessive sweating, excessive thirst, exce ssive urination, flushing, intolerance to cold, intolerance to heat, unexplained weight gain, unexplained weight loss, others Psychiatric: denies: anxiety, bipolar disorder, depression, hopeless, panic disorder, schizophrenia, sleepless, suicidal, others Physical Exam General Appearance: No Apparent Distress, Normal HEENT: Normal ENT Inspection, Pharynx Normal, TMs Normal Neck: Full Range of Motion, Non-Tender, Normal, Normal Inspection Respiratory: Chest Non-Tender, Lungs Clear, No Accessory Muscle Use, No Respi ratory Distress, Normal Breath Sounds Cardiovascular: No Edema, No JVD, No Murmur, No Gallop, Normal Peripheral Pulses, Regular Rate/Rhythm Breast Exam: Deferred Gastrointestinal: No Organomegaly, Non Tender, No Pulsatile Mass, Normal Bowel Sounds, Soft Genitalia: Deferred Pelvic: Deferred Rectal: Deferred Extremities: No calf tenderness, Normal capillary refill, Normal inspection, Normal range of motion, Non-tender, No pedal edema Musculoskeletal : Apperance: Normal Neurologic: Alert, supervisor computer operations II-XII nml as Tested, No Motor Deficits, Normal Affect, Normal Mood, No Sensory Deficits Cerebellar Function: Normal Reflexes: Normal Skin: Dry, Normal Color, Warm Lymphatic: No Adenopathy Was a procedure done? Was a procedure done?: No Differential Diagnosis Kidney stone (Female): N/A Kidney stone (Male): N/A Urinary Problem (Male): Prostatitis, Urethritis, Urinary Retention X-Ray, Labs, Meds, VS Vital Signs Date Time Temp Pulse Resp B/P (MAP) Pulse Ox O2 Delivery O2 Flow Rate FiO2 08/29/25 06:19 98.8 79 16 131/78 (95) 95 98.8 08/29/25 04:33 98.0 80 18 125/79 98 98.0 Time of 1ST Reevaluation: 04:59 Reevaluation 1ST: Unchanged Patient Education/Counseling: Diagnosis, Treatment Family Education/Counseling: No Family Present SEPSIS Sepsis Screen Date sepsis recognized/suspect: Aug 29, 2025 Time Sepsis recognized/suspect: 435 Recent Procedure: No On Antibiotic Therapy: No Respiratory Rate >20: No Heart Rate >90: No Temp<36 C (96.8 F) or >38.3 C: No SBP <90 or MAP <65 mmHG: No New Acute Mental Status Change: No Is the patient on CPAP, BIPAP,: No Physician Orders Insert Tiwari Catheter STAT (08/29/25 04:42) Urinalysis (08/29/25 04:42) Vital Signs Date Time Temp Pulse Resp B/P (MAP) Pulse Ox O2 Delivery O2 Flow Rate FiO2 08/29/25 06:19 98.8 79 16 131/78 (95) 95 98.8 08/29/25 04:33 98.0 80 18 125/79 98 98.0 Departure 1 Departure Time of Disposition: 06:00 Impression: Primary Impression: Urinary retention due to benign prostatic hyperplasia Disposition: HOME / SELF CARE / HOMELESS Condition: Stable Discharged With: Self Critical Care Note Critical Care Time?: No Stability Stability form required: No Heart Score Heart Score: Heart Score Response (Comments) Value History N/A 0 EKG N/A 0 Age N/A 0 Risk Factors N/A 0 Troponin N/A 0 Total 0 I personally scribed for SCOTT MIRANDA MD ([email or web address]) on 08/29/25 at 05:03. Electronically submitted by Pancho Joseph ([email or web address]). SCOTT MIRANDA MD Aug 29, 2025 05:03
[2025-08-29 06:19] VITALS: BP 131/78; PULSE 79; RESP 16; TEMP 98.8; O2SAT 95
== END 2025-08-30 08:14 | disposition left against medical advice (07) ==
LOC: ER 04:32
DX: N40.1 Benign prostatic hyperplasia with lower urinary tract symptoms (principal); R33.8 Other retention of urine; I10 Essential (primary) hypertension; F41.9 Anxiety disorder, unspecified; K21.9 Gastro-esophageal reflux disease without esophagitis; E78.5 Hyperlipidemia, unspecified; J44.9 Chronic obstructive pulmonary disease, unspecified; Z79.82 Long term (current) use of aspirin; Z79.899 Other long term (current) drug therapy; Z98.890 Other specified postprocedural states